=== PATIENT | male | born 1960 | race Caucasian/White ===

== ENCOUNTER 2017-04-23 22:29 | Emergency (ER) | payer OTHER ==
[~2017-04-23] VITALS: Ht 180.3 cm; Wt 105.5 kg
[2017-04-23 22:37] VITALS: TEMP 36.5; Ht 180.3 cm; Wt 105.5 kg
[2017-04-23] MEDS ORDERED: LEVO200T PO (23:11)
[2017-04-23] MEDS ORDERED: LEVO50TA PO (23:11)
[2017-04-23] MEDS ORDERED: ALBUTEROL 0.5% NEB SOLN 2.5 MG/0.5 ML VIAL INH STA (23:32)
[2017-04-23 23:43] LABS: BASO % 0.2 %; BASO ABS # 0.02 K/uL (0-0.2); COMPLETE YES; EOS % 6.9 %; HEMATOCRIT 41.6 % (42-52); IG% 0.1 %; LYMPH % 44.2 %; LYMPH ABS # 3.65 K/uL (1.2-3.4); MEAN CELL VOLUME 92.7 fL (80-100); MEAN CORPUSCULAR HEMOGLOBIN 32.7 pg (25-34); MEAN CORPUSCULAR HGB CONC 35.3 g/dl (32-36); MEAN PLATELET VOLUME 8.9 fL (7.4-10.4); MONO % 8.8 %; NEUT % 39.8 %; PLATELET COUNT 164 K/uL (130-400); RED BLOOD COUNT 4.49 M/uL (4.7-6.1); WHITE BLOOD COUNT 8.26 K/uL (4.8-10.8)
--- NOTE | 2017-04-23 23:43 | EMERGENCY ROOM VISIT NOTE ---
History Report prepared by Dejah: Erick Giron Under the Supervision of: Dr. Prasanna Rojo M.D. First contact with patient: 23:19 Chief Complaint: RESPIRATORY PROBLEMS Stated Complaint: PROBLEMS BREATHING Nursing Triage Summary: patient c/o increased chest heaviness throughout the day and feeling SOB along with wheezing. denies any cardiac hx. states he recently has had upper respiratory symptoms. History of Present Illness The patient is a 57 year old male who presents to the Emergency Room with complaints of worsening respiratory problems starting last night. The patient states that last night he was having some congestion, and could not breathe, and could not sleep very well. Additionally, he has been having some chest heaviness. He took a decongestant this morning, and this helped him. He states that tonight it got worse. He notes that he recently had a cold, and he has been unable to sleep which is unusual. The patient denies any abdominal pain. Source of History: patient Onset: last night Position: other (global) Quality: other (respiratory problems) Timing: worsening Associated Symptoms: No abdominal pain Note: Associated symptoms: chest heaviness and congestion Review of Systems See HPI for pertinent positives & negatives. A total of 10 systems reviewed and were otherwise negative. Past Medical & Surgical Medical Problems: (1) Sinus infection (2) Thyroid mass Social History Smoking Status: Never Smoker Marital Status: single Occupation Status: employed Current/Historical Medications Scheduled Azithromycin (Zithromax), 250 MG PO DAILY Levothyroxine Sodium (Synthroid), 50 MCG PO DAILY Levothyroxine Sodium (Synthroid), 200 MCG PO DAILY Allergies Coded Allergies: No Known Allergies (Verified , 04/23/17) Physical Exam Vital Signs Date Time Temp Pulse Resp B/P (MAP) Pulse Ox O2 Delivery O2 Flow Rate FiO2 04/24/17 00:52 91 18 142/98 94 Room Air 04/23/17 23:59 87 20 142/98 97 Room Air 04/23/17 23:35 Room Air 04/23/17 22:54 106 04/23/17 22:53 97 Room Air 04/23/17 22:37 36.5 114 20 163/98 96 Room Air Physical Exam GENERAL: Patient is a healthy-appearing well-nourished male HEAD: Normocephalic atraumatic EYES: Ocular movements intact pupils equal and react to light OROPHARYNX mucous membranes are moist no exudates present no erythema or edema present NECK: Supple no nuchal rigidity CHEST: Good equal expansion LUNGS: Clear and equal to auscultation CARDIAC: Normal S1 and S2 ABDOMEN: Soft nontender no guarding BACK: No CVA tenderness EXTREMITIES: No pain upon palpation normal muscle strength in all groups no clubbing cyanosis or edema NEURO: Patient is following commands and answering questions appropriately. Alert and oriented x3 Cranial Nerves 2-12 grossly intact Medical Decision & Procedures ER Provider Diagnostic Interpretation: One View Chest as interpreted by me: No pneumonia, congestion, or pneumothorax Laboratory Results 04/23/17 22:50 Red Blood Count 4.49, Mean Corpuscular Volume 92.7, Mean Corpuscular Hemoglobin 32.7, Mean Corpuscular Hemoglobin Concent 35.3, Mean Platelet Volume 8.9, Neutrophils (%) (Auto) 39.8, Lymphocytes (%) (Auto) 44.2, Monocytes (%) (Auto) 8.8, Eosinophils (%) (Auto) 6.9, Basophils (%) (Auto) 0.2, Neutrophils # (Auto) 3.28, Lymphocytes # (Auto) 3.65, Monocytes # (Auto) 0.73, Eosinophils # (Auto) 0.57, Basophils # (Auto) 0.02 04/23/17 22:50 Test 04/23/17 22:50 04/23/17 23:40 04/23/17 23:56 White Blood Count 8.26 K/uL (4.8-10.8) Red Blood Count 4.49 M/uL (4.7-6.1) Hemoglobin 14.7 g/dL (14.0-18.0) Hematocrit 41.6 % (42-52) Mean Corpuscular Volume 92.7 fL (80-100) Mean Corpuscular Hemoglobin 32.7 pg (25-34) Mean Corpuscular Hemoglobin Concent 35.3 g/dl (32-36) Platelet Count 164 K/uL (130-400) Mean Platelet Volume 8.9 fL (7.4-10.4) Neutrophils (%) (Auto) 39.8 % Lymphocytes (%) (Auto) 44.2 % Monocytes (%) (Auto) 8.8 % Eosinophils (%) (Auto) 6.9 % Basophils (%) (Auto) 0.2 % Neutrophils # (Auto) 3.28 K/uL (1.4-6.5) Lymphocytes # (Auto) 3.65 K/uL (1.2-3.4) Monocytes # (Auto) 0.73 K/uL (0.11-0.59) Eosinophils # (Auto) 0.57 K/uL (0-0.5) Basophils # (Auto) 0.02 K/uL (0-0.2) RDW Standard Deviation 45.2 fL (36.4-46.3) RDW Coefficient of Variation 13.4 % (11.5-14.5) Immature Granulocyte % (Auto) 0.1 % Immature Granulocyte # (Auto) 0.01 K/uL (0.00-0.02) D-Dimer 350 ug/L FEU (0-500) Anion Gap 10.0 mmol/L (3-11) Est Creatinine Clear Calc Drug Dose 98.0 ml/min Estimated GFR () 92.6 Estimated GFR (Non- 79.9 BUN/Creatinine Ratio 24.6 (10-20) Calcium Level 9.0 mg/dl (8.5-10.1) Total Bilirubin 0.8 mg/dl (0.2-1) Aspartate Amino Transf (AST/SGOT) 39 U/L (15-37) Alanine Aminotransferase (ALT/SGPT) 46 U/L (12-78) Alkaline Phosphatase 105 U/L (45-117) Total Creatine Kinase 352 U/L (39-308) Creatine Kinase MB 5.6 ng/ml (0.5-3.6) Troponin I < 0.015 ng/ml (0-0.045) Total Protein 7.9 gm/dl (6.4-8.2) Albumin 4.0 gm/dl (3.4-5.0) Globulin 3.9 gm/dl (2.5-4.0) Albumin/Globulin Ratio 1.0 (0.9-2) Influenza Type A (RT-PCR) Neg for Influ A (NEG) Influenza Type A Antigen Neg for Influ A (NEG) Influenza Type B Antigen Neg for Influ B (NEG) Influenza Type B (RT-PCR) Neg for Influ B (NEG) Creatine Kinase MB Ratio (0-3.0) Labs reviewed by ED physician. Medications Administered Medications (Trade) Dose Ordered Sig/Vanessa Route Start Time Stop Time Status Last Admin Dose Admin Albuterol (Ventolin Hfa Inhaler) 2 puffs NOW ONCE INH 04/23/17 23:45 04/23/17 23:46 DC 04/23/17 23:40 60 PUFFS Albuterol Sulfate (Ventolin 0.5% 2.5MG/0.5ML Neb) 2.5 mg NOW STAT INH 04/23/17 23:32 04/23/17 23:35 DC 04/23/17 23:39 2.5 MG Azithromycin (Zithromax Tab) 500 mg NOW STAT PO 04/24/17 00:51 04/24/17 00:52 DC 04/24/17 00:56 500 MG ECG Indication: SOB/dyspnea Rate (beats per minute): 104 Rhythm: sinus tachycardia Findings: no acute ischemic change, no ectopy ED Course 2329: Past medical records reviewed. The patient was evaluated in room C5. A complete history and physical examination was performed. 2332: Albuterol Sulfate 2.5mg INH 2345: Albuterol 2 puffs INH 0051: Azithromycin 500mg PO 0103: Upon reexamination the patient is doing well. I discussed results and treatment plan with the patient. He verbalizes agreement and understanding. The patient is ready for discharge. Medical Decision Differential diagnosis: Etiologies such as infections, reactive airway disease, pneumonia, pneumothorax , COPD, CHF, cardiac ischemia, pulmonary embolism, musculoskeletal, gastrointestinal, as well as others were entertained. This is a 57-year-old male who presents emergency department complaining of respiratory like symptoms. Based on the patient's complaint the patient was given a breathing treatment in the emergency department as well as an inhaler. Repeat examination revealed much improvement the patient's symptoms. In addition the patient does not have any evidence of pneumonia congestion and pneumothorax on chest x-ray. He has a normal EKG normal cardiac enzymes and a normal d-dimer. Based on these findings I felt that the patient can be safely discharged home. He will be placed on azithromycin for sinusitis and encouraged to use inhaler twice every 6 hours. Patient was in agreement with the treatment plan. Medication Reconcilliation Current Medication List: was personally reviewed by me Blood Pressure Screening Patient's blood pressure: Elevated blood pressure Blood pressure disposition: Elevated BP felt to be situational Impression Primary Impression: Sinusitis Scribe Attestation The scribe's documentation has been prepared under my direction and personally reviewed by me in its entirety. I confirm that the note above accurately reflects all work, treatment, procedures, and medical decision making performed by me. Departure Information Dispostion Home / Self-Care Prescriptions Azithromycin (ZITHROMAX) 250 Mg Tab 250 MG PO DAILY, #4 TAB Prov: Prasanna Rojo MD 04/24/17 Referrals No Doctor, Assigned (PCP) Forms HOME CARE DOCUMENTATION FORM, IMPORTANT VISIT INFORMATION, WORK / SCHOOL INSTRUCTIONS Patient Instructions ED Bronchitis Asthmatic, ED Sinusitis Abx Tx, My [facility] Additional Instructions Use inhaler twice every 6 hours Radiographs and CTs will be reread by a radiologist in the morning. Culture results are usually available in approx 48 hours You have been examined and treated today on an emergency basis only. This is not a substitute for, or an effort to provide, complete comprehensive medical care. It is impossible to recognize and treat all injuries or illnesses in a single emergency department visit. It is therefore important that you follow up closely with Dr Douglas. Call as soon as possible for an appointment. Thank you for your time and consideration. I look forward to speaking with you again soon. Please don't hesitate to call us if you have any questions. Problem Qualifiers Primary Impression: Sinusitis Sinusitis location: unspecified location Chronicity: unspecified Qualified Codes: J32.9 - Chronic sinusitis, unspecified
[2017-04-23] MEDS ORDERED: ALBUTEROL HFA 8 GM INHALER INH ONE (23:45)
[2017-04-23 23:50] LABS: ALT/SGPT 46 U/L (12-78); BLOOD UREA NITROGEN 26 mg/dl (7-18); BUN/CREATININE RATIO 24.6 (10-20); CARBON DIOXIDE 29 mmol/L (21-32); CHLORIDE 103 mmol/L (98-107); CREATININE 1.04 mg/dl (0.60-1.40); GLUCOSE 118 mg/dl (70-99); POTASSIUM 3.8 mmol/L (3.5-5.1); SODIUM 142 mmol/L (136-145)
[2017-04-23 23:53] LABS: ALKALINE PHOSPHATASE 105 U/L (45-117); AST/SGOT 39 U/L (15-37)
[2017-04-24 00:23] LABS: CKMB/CK RATIO 1.6 (0-3.0)
[2017-04-24] MEDS ORDERED: AZITHROMYCIN 250 MG TAB PO STA (00:51)
[2017-04-24 00:52] VITALS: BP 142/98; PULSE 91; O2SAT 94
[2017-04-24] MEDS ORDERED: AZIT-60 PO (00:52)
[2017-04-24 00:58] LABS: INFLUENZA A PCR Neg for Influ A (NEG); INFLUENZA B PCR Neg for Influ B (NEG)
--- NOTE | 2017-04-24 06:43 | DIAGNOSTIC IMAGING REPORT ---
CHEST ONE VIEW PORTABLE CLINICAL HISTORY: Shortness of breath COMPARISON STUDY: No previous studies for comparison. FINDINGS: The cardiac and mediastinal contours are normal. There is no evidence of focal pulmonary consolidation. There is no evidence of failure. No pleural effusions are visualized.[ There are surgical clips project over the right lung apex. IMPRESSION: No active disease in the chest. Electronically signed by: Josh Gray M.D. 04/24/2017 6:42 AM Dictated Date/Time: 04/24/2017 6:41 AM
== END 2017-04-24 01:00 | disposition home or self-care (01) ==
LOC: C.EDB 22:30 → C.EDC 04-24 01:00
DX: J32.9 Chronic sinusitis, unspecified (principal); R00.0 Tachycardia, unspecified; Z79.899 Other long term (current) drug therapy